=== PATIENT | female | born 1955 | race Caucasian/White ===

== ENCOUNTER 2018-06-28 10:17 | Day surgery (SDC) | payer BC ==
[2018-06-28] MEDS ORDERED: MIDAZOLAM HCL 2MG/2ML VIAL IV ONE (10:18)
[2018-06-28] MEDS ORDERED: LIDOCAINE 2% MDV (20MG/ML) 20ML VIAL IV ONE (10:18)
[2018-06-28] MEDS ORDERED: PROPOFOL 10 MG/ML VIAL IV ONE (10:18)
--- NOTE | 2018-06-29 11:20 | Operative Note ---
DATE OF SURGERY: 06/28/2018 OPERATION: COLONOSCOPY to the cecum. INDICATION: Strong family history of colon cancer in both the patient's mother and father. The patient was also recently diagnosed with chronic lymphocytic leukemia and received chemotherapy for that. She presents today after 5 years for high-risk screening examination. ANESTHESIA: Intravenous sedation was administered by the department of anesthesiology and included Diprivan titrated to effect. PROCEDURE: Following informed consent from this alert individual including a discussion of the risks and benefits of the procedure and an opportunity for the patient to ask questions, the patient was in the left lateral decubitus position. A digital rectal examination was performed. No abnormalities were noted. Following this, the Olympus [id number] video colonoscope was inserted into the rectum without resistance. The rectal mucosa had a normal appearance with normal folds and distensibility. The colonoscope was advanced up through the colon to the level of the cecum. There was redundancy noted in the colon and melanosis coli noted particularly in the right colon. The preparation was fair to good with some residual liquid and semi-solid stool noted. Washing and suctioning was employed vigorously, particularly in the right colon. The cecum was defined by noting the base of the cecum and the ileocecal valve. From this point, the colonoscope was slowly withdrawn. No abnormalities were noted except for the melanosis coli. No polyps were noted. Retroflexion in the rectum was endoscopically unremarkable. The endoscope was straightened and withdrawn. The patient tolerated the procedure well and was returned to the recovery area in stable condition. IMPRESSION: 1. Melanosis coli. 2. Redundant colon with [id number] preparation. RECOMMENDATIONS: The patient was advised to have screening colonoscopy in 5 years' time or sooner if problems arise. Followup will otherwise be with Dr. Garcia. As always, thank you for allowing me to participate in the care of your patient. CC: Dr. Filiberto ROBLES
== END 2018-06-28 13:10 | disposition home or self-care (01) ==
LOC: HOP 10:17
PROVIDERS: ATTEND Internal Medicine Gastroenterology
DX: Z12.11 Encounter for screening for malignant neoplasm of colon (principal); Z80.0 Family history of malignant neoplasm of digestive organs; K63.89 Other specified diseases of intestine; Q43.8 Other specified congenital malformations of intestine; K21.9 Gastro-esophageal reflux disease without esophagitis; J45.909 Unspecified asthma, uncomplicated
CPT/HCPCS: 00812; G0105